=== PATIENT | female | born 1970 | race Caucasian/White ===

== ENCOUNTER 2017-05-23 21:12 | Observation (INO) | payer BC ==
[~2017-05-23] VITALS: Ht 180.3 cm; Wt 120.0 kg
[~2017-05-23 21:12] MED LIST: FURO1TAB93 OR; LIBRAX PO; NEBI20 PO; NITR0.4S SL; OXYC30TA PO; POTA10TA15 PO; XANA0.5T PO
[2017-05-23 21:14] VITALS: BP 153/63; PULSE 78; RESP 16; TEMP 98.8; O2SAT 100
[2017-05-23 21:53] VITALS: O2SAT 99
--- NOTE | 2017-05-23 21:59 | PD ---
HPI Chief Complaint: Cardiac Complaint Time Seen by Provider: 21:49 Travel History International Travel<30 days: No Contact w/Intl Traveler<30days: No Traveled to known affect area: No History of Present Illness HPI 47-year-old female presents to the emergency department by private transportation for complaint of chest pressure and tightness. Patient also complains of shortness of breath. Patient is been having symptoms intermittently times one week. Patient was recently hospitalized in [place] for chest pain and shortness of breath with reported that as part of for evaluation she was scheduled to have an echocardiogram and a cardiac catheterization. However while she was in the hospital his past week and her mother from myocardial infarction so she signed herself out AGAINST MEDICAL ADVICE from the [facility] and came to [place] to be with the rest of her family due to her mother's sudden . Patient said mother had coronary vessel disease and father also had coronary vessel disease. Patient also reports that at the age 16 she started seeing a transit mixer operator in some time in the past several years greater than 10 she is not specific; she had an episode reportedly cardiac arrest in her 20's that was reportedly identified as some type of rhythm disturbance possibly atrial fibrillation. Patient had been on Coumadin until 1 month ago when they discontinued any anticoagulant therapy to "see how [she] would do" reportedly. Patient has not taken any nitroglycerin for her chest pain today. Patient has been taking Bystolic after stopping metoprolol. Patient does not report any pleuritic chest pain. Patient does not report any new lower extremity pain or swelling. 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) ?: Not LMP: 05/14/17 Past Surgical History Abdominal Surgery: Yes (INTESTINAL REPAIR) Appendectomy: Yes Cholecystectomy: Yes Oral Surgery: Yes (TOOTH REMOVAL) Tonsillectomy: Yes Other Surgery: Yes (SKIN GRAFTS LEFT UPPER LEG, TUBE IN LEFT EAR) Social History Alcohol Use: No Tobacco Use: No Substance Use: No Allergies-Medications (Allergen,Severity, Reaction): Coded Allergies: penicillin G (Unverified Allergy, Mild, Swelling, 05/23/17) Reported Meds & Prescriptions Reported Meds & Active Scripts Active Librax (Chlordiazepoxide/Clidinium) 5 Mg Cap 1 Cap PO TIDACHS Potassium Chloride Er (Potassium Chloride Microencaps) 10 Meq Tab 10 Meq PO DAILY Lasix (Furosemide) 40 Mg Tab 40 Mg OR DAILY Reported Oxycodone Hcl (Oxycodone HCl) 30 Mg Tab 30 Mg PO QID as needed Xanax 0.5 mg (Alprazolam) Alprazolam 0.5 mg Tab 1 Tab PO TID Nitrostat (Nitroglycerin) 0.4 Mg Sub 0.4 Mg SL DIRECTED Bystolic 20 Mg Tab (Nebivolol) 20 Mg Tab 20 Mg PO BID Review of Systems Except as stated in HPI: all other systems reviewed are Neg General / Constitutional: No: Fever, Chills HENT: No: Congestion Cardiovascular: Positive: Chest Pain or Discomfort, Dyspnea on exertion, No: Palpitations, Diaphoresis Respiratory: Positive: Shortness of Breath Gastrointestinal: No: Abdominal Pain Genitourinary: No: Flank Pain Skin: No Rash Neurologic: Positive: Weakness, No: Dizziness, Syncope, Focal Abnormalities, Coordination Problem Psychiatric: No: Anxiety Hematologic/Lymphatic: No: Lymph Node Enlargement Physical Exam Narrative GENERAL: Well-developed well-nourished female in no acute distress no respiratory distress SKIN: Warm and dry. HEAD: Normocephalic. EYES: No scleral icterus. No injection or drainage. NECK: Supple, trachea midline. No JVD or lymphadenopathy. CARDIOVASCULAR: Regular rate and rhythm without murmurs, gallops, or rubs. Chest wall: Reproducible chest wall tenderness to palpation especially along the sternum. RESPIRATORY: Breath sounds equal bilaterally. No accessory muscle use. GASTROINTESTINAL: Abdomen soft, non-tender, nondistended. MUSCULOSKELETAL: No cyanosis, or edema. BACK: Nontender without obvious deformity. No CVA tenderness. Data Data Last Documented VS Vital Signs Date Time Temp Pulse Resp B/P (MAP) Pulse Ox O2 Delivery O2 Flow Rate FiO2 05/23/17 21:36 99 Room Air 05/23/17 21:14 98.8 78 16 153/63 (93) Orders Orders Electrocardiogram (05/23/17 21:49) Basic Metabolic Panel (Bmp) (05/23/17 21:49) Ckmb (Isoenzyme) Profile (05/23/17 21:49) Complete Blood Count With Diff (05/23/17 21:49) Magnesium (Mg) (05/23/17 21:49) Prothrombin Time / Inr (Pt) (05/23/17 21:49) Act Partial Throm Time (Ptt) (05/23/17 21:49) Troponin I (05/23/17 21:49) Chest, Single Ap (05/23/17 21:49) Ecg Monitoring (05/23/17 21:49) Bilateral Bp Monitoring (05/23/17 21:49) Iv Access Insert/Monitor (05/23/17 21:49) Oximetry (05/23/17 21:49) Oxygen Administration (05/23/17 21:49) Aspirin Chew (Aspirin Chew) (05/23/17 22:00) Sodium Chloride 0.9% Flush (Ns Flush) (05/23/17 22:00) MDM Medical Decision Making Medical Screen Exam Complete: Yes Emergency Medical Condition: Yes Medical Record Reviewed: Yes Differential Diagnosis EKG sinus rhythm rate [address] segment elevation ST segment depression or injury pattern noted no ectopy Narrative Course Patient placed on physicist light and optics IV access obtained pulse oximetry placed patient administered aspirin 500 cc bolus of normal saline several nitroglycerin times one dose Lakshmi Jaquez MD May 23, 2017 21:59
[2017-05-23] MEDS ORDERED: SODIUM CHLORID 0.9% 500 ML INJ 500 ML IV ONE (22:00)
[2017-05-23] MEDS ORDERED: ASPIRIN 81 MG CHEW TAB PO ONE (22:00)
[2017-05-23] MEDS ORDERED: NITROGLYCERIN 0.4 MG SL 25 TABS/BTL SL ONE (22:00)
[2017-05-23] MEDS ORDERED: SODIUM CHLORIDE 0.9% FLUSH 10 ML FLUSH IVF PRN (22:00)
[2017-05-23] MEDS ORDERED: PROT40TA PO (22:03)
[2017-05-23] MEDS ORDERED: NEBI20 PO (22:03)
[2017-05-23] MEDS ORDERED: OXYC30TA PO (22:03)
[2017-05-23] MEDS ORDERED: POTA10TA15 PO (22:03)
[2017-05-23] MEDS ORDERED: ZOFR8TAB4 SL (22:03)
[2017-05-23] MEDS ORDERED: NITR0.4S SL (22:03)
[2017-05-23] MEDS ORDERED: ALPR.5 PO (22:03)
[2017-05-23] MEDS ORDERED: FURO1TAB60 PO (22:03)
--- NOTE | 2017-05-23 22:08 | RADRPT ---
EXAM DATE/TIME: 05/23/2017 21:51 [facility] COMPARISON: No previous studies available for comparison. INDICATIONS : Chest pain MEDICAL HISTORY : Hypertension. SURGICAL HISTORY : None. ENCOUNTER: Initial ACUITY: 1 day PAIN SCORE: 4/10 LOCATION: chest FINDINGS: A single view of the chest demonstrates the lungs to be symmetrically aerated without evidence of mas s, infiltrate or effusion. The cardiomediastinal contours are unremarkable. Osseous structures are intact. CONCLUSION: No evidence of acute cardiopulmonary disease. Shaheed Blank MD on May 23, 2017 at 22:07 Board Certified Radiologist. This report was verified electronically.
[2017-05-23 22:28] LABS: AUTOMATED NEUTROPHIL # 5.3 TH/MM3 (1.8-7.7); BASOPHIL # 0.1 TH/MM3 (0-0.2); BASOPHIL % 0.8 % (0.0-2.0); EOSINOPHIL # 0.1 TH/MM3 (0-0.4); EOSINOPHIL % 0.9 % (0.0-4.0); HEMATOCRIT 37.9 % (35.0-46.0); HEMO FLAGS DIFF FINAL; LYMPH % 27.5 % (9.0-44.0); LYMPHOCYTE # 2.3 TH/MM3 (1.0-4.8); MEAN CELL VOLUME 85.1 FL (80.0-100.0); MEAN CORPUSCULAR HEMOGLOBIN 27.7 PG (27.0-34.0); MEAN CORPUSCULAR HGB CONC 32.6 % (32.0-36.0); MONO % 7.5 % (0.0-8.0); NEUT % 63.3 % (16.0-70.0); PLATELET COUNT 288 TH/MM3 (150-450); RED BLOOD COUNT 4.46 MIL/MM3 (4.00-5.30); RED CELL DISTRIBUTION WIDTH 15.5 % (11.6-17.2); WHITE BLOOD COUNT 8.4 TH/MM3 (4.0-11.0)
[2017-05-23 23:00] LABS: APTT (PATIENT) 27.3 SEC (24.3-30.1); INTERNATIONAL NORMALIZED RATIO 0.9 RATIO; PROTHROMBIN TIME - PATIENT 10.4 SEC (9.8-11.6)
[2017-05-23 23:03] LABS: ANION GAP 5 MEQ/L (5-15); BICARBONATE 30.1 MEQ/L (21.0-32.0); BLOOD UREA NITROGEN 11 MG/DL (7-18); CHLORIDE 103 MEQ/L (98-107); GLOMERULAR FILTRATION RATE 59 ML/MIN (>89); MAGNESIUM 2.1 MG/DL (1.5-2.5); POTASSIUM 3.5 MEQ/L (3.5-5.1); SODIUM (NA) 138 MEQ/L (136-145)
[2017-05-23 23:23] LABS: CREATINE KINASE 50 U/L (26-192)
[2017-05-23 23:44] VITALS: BP_SYST 110; BP_SYST 141; BP_DIAS 52; BP_DIAS 71; PULSE 60; RESP 18; O2SAT 99
[2017-05-23] MEDS ORDERED: IOHEXOL 350 MG/ML 10 ML VIAL (for RAD DIAG) IVCONTRAST ONE (23:52)
[2017-05-24] VITALS (8 sets, daily range): BP systolic 96–116; BP diastolic 54–56; PULSE 47–73; RESP 18; TEMP 97.7–98; O2SAT 97–100
[2017-05-24] MEDS ORDERED: KETOROLAC TROMETHAMINE 30 MG/ML (IVP) VIAL IV PUSH ONE (00:15)
--- NOTE | 2017-05-24 00:19 | RADRPT ---
EXAM DATE/TIME: 05/23/2017 23:44 [facility] COMPARISON: No previous studies available for comparison. INDICATIONS : Chest pressure with shortness of breath. IV CONTRAST: 75 cc Omnipaque 350 (iohexol) IV RADIATION DOSE: 23.76 CTDIvol (mGy) MEDICAL HISTORY : Cardiovascular disease. Hypertension. Lymphoma. SURGICAL HISTORY : Appendectomy. Cholecystectomy. ENCOUNTER: Initial ACUITY: 1 week PAIN SCALE: 2/10 LOCATION: chest TECHNIQUE: Volumetric scanning of the chest was performed using a pulmonary embolism protocol MIP images were re constructed. Using automated exposure control and adjustment of the mA and/or kV according to patien t size, radiation dose was kept as low as reasonably achievable to obtain optimal diagnostic quality images. DICOM format image data is available electronically for review and comparison. Follow-up recommendations for detected pulmonary nodules are based at a minimum on nodule size and pa tient risk factors according to Fleischner Society Guidelines. FINDINGS: PULMONARY ARTERIES: No filling defects are seen in the pulmonary arteries through the segmental level. LUNGS: There is no consolidation or pneumothorax . No concerning pulmonary nodule is visualized. Calcified granuloma right upper lobe PLEURAE: There is no pleural thickening or pleural effusion. MEDIASTINUM: There is good visualization of the great vessels of the middle mediastinum. No evidence of mediastin al or hilar adenopathy/mass. MUSCULOSKELETAL: Within normal limits for patient age. MISCELLANEOUS: The visualized upper abdominal organs demonstrate no acute abnormality. CONCLUSION: 1. Negative for pulmonary bolus. 2. Calcified granuloma right upper lobe. 3. Linear scarring or atelectasis at the lung bases. Peter Lawrence MD on May 24, 2017 at 0:14 Board Certified Radiologist. This report was verified electronically.
[2017-05-24] MEDS ORDERED: NITROGLYCERIN 2% OINT 1 GM PACKET TOPICAL ONE (01:00)
[2017-05-24] MEDS ORDERED: SODIUM CHLOR 0.9% 1000 ML INJ 1,000 ML IV ONE ×2 (01:00→02:45)
[2017-05-24 01:57] LABS: CREATINE KINASE 36 U/L (26-192)
[2017-05-24] MEDS ORDERED: SODIUM CHLORIDE 0.9% FLUSH 10 ML FLUSH IVF PRN (03:00)
[2017-05-24] MEDS ORDERED: ONDANSETRON HCL 4 MG/2 ML VIAL IV PUSH PRN (03:00)
[2017-05-24] MEDS ORDERED: SODIUM CHLORIDE 0.9% FLUSH 10 ML FLUSH IV FLUSH PRN (03:00)
[2017-05-24 05:40] LABS: CREATINE KINASE 31 U/L (26-192)
[2017-05-24] MEDS ORDERED: NITROGLYCERIN 2% OINT 1 GM PACKET TOP SCH (06:00)
[2017-05-24 08:01] LABS: CREATINE KINASE 35 U/L (26-192)
[2017-05-24] MEDS ORDERED: SODIUM CHLORIDE 0.9% FLUSH 10 ML FLUSH IV FLUSH SCH ×2 (09:00)
--- NOTE | 2017-05-24 10:49 | HHI.HP ---
HPI Primary Care Physician Primary Care Physician located in [place] Chief Complaint Chest pressure History of Present Illness 47-year-old female with history of GERD and long standing cardiac arrhythmias since age 16 presents to emergency room for further evaluation of chest pressure. Onset 2 weeks ago. Location substernal. Characterized as pressure. Duration constant. Reporting associated symptoms and radiation of pain difficult for her to distinguish due to GERD and chronic back pain. No known precipitating or relieving factors. She is from [place] and in [place] due to mother Saturday. Last week in [place] was admitted to a local hospital for chest pain. Chemical stress test attempted stating she "turned blue and they needed to give me reverse medication to save me." Since chemical stress test was not completed she was scheduled for an echocardiogram and cardiac catheterization Saturday (05/20/17). She signed herself out AMA to come to [place] due to mother's Saturday evening. Reporting a history A. fib diagnoses age 16, history of 9 cardioversions, and "coding when I was 16." Denies ever having cardiac ablations. Review of Systems General: No fatigue,weakness, fever, chills, or recent illness. HEENT: No SINGH, no vision changes CV: Current chest pain as stated above. 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 Diagnosed with A. fib age 16, stop taking warfarin 1 month ago at the direction of her ethanol quality leader. RESP: No SOB, cough, or recent URI. GI: No nausea, vomiting, or bowel changes. No change in appetite, no unintentional weight gain or weight loss. : No dysuria EXT: Occasional bilateral lower leg edema, no paraesthesias MS: No discomfort or change in ROM NEURO: No difficulty with balance, LOC, motor/sensory deficits PSYCH: No anxiety, depression, or suicidal ideation. Reports handling situational stress over mother's well. SKIN: No rashes, no concerning lesions Past Family Social History Allergies: Coded Allergies: egg (Verified Allergy, Intermediate, FACIAL SWELLING, 05/23/17) penicillin G (Unverified Allergy, Mild, Swelling, 05/23/17) Past Medical History GERD, lymphoma, A. fib, cardiac arrhythmias (unsure what types), deaf left ear, arthritis Past Surgical History Hiatal hernia repair, intestinal repair, right knee and leg screws and rods Reported Medications Active Reported Protonix (Pantoprazole Sodium) 40 Mg Tab 40 Mg PO DAILY Zofran Odt (Ondansetron Odt) 8 Mg Tab 8 Mg SL Q8H PRN Bystolic (Nebivolol) 10 Mg PO BID Oxycodone (Oxycodone HCl) 30 Mg Tab 30 Mg PO Q6H PRN Xanax (Alprazolam) 0.5 Mg Tab 0.5 Mg PO Q8H PRN Lasix (Furosemide) 40 Mg Tab 40 Mg PO DAILY Nitrostat SL (Nitroglycerin) 0.4 Mg Subl 0.4 Mg SL DIRECTED PRN 1 tablet under the tongue as needed for chest pain. Repeat every 5 minutes for a total of 3 DOSES or call 911 if NO relief. Potassium Chloride Microencaps 10 Meq Tab 10 Meq PO DAILY Ranitidine 150 mg twice a day Carafate (quit taking recently states she was afraid she was taking too many medications) Active Ordered Medications Current Medications Medications (Trade) Dose Ordered Sig/Ascencion Route Start Time Stop Time Status Last Admin (NS Flush) 2 ml UNSCH PRN IV FLUSH 05/24/17 03:00 (NS Flush) 2 ml BID IV FLUSH 05/24/17 09:00 05/24/17 09:11 (Zofran Inj) 4 mg Q6H PRN IV PUSH 05/24/17 03:00 (Nitroglycerin 2% Oint) 0.5 inch Q6HR TOP 05/24/17 06:00 Family History Father age 62 from [place]. Mother age 71 from [place]. Social History No known diabetes, hyperlipidemia, hypertension, or coronary artery disease. Lifelong nonsmoker. Denies any alcohol or illegal drug use. Endorses a sedentary lifestyle. Lives in [place]. Past cardiac testing Recently detected chemical stress test unable to complete due to reaction. Was scheduled this past Saturday05/20/17 for cardiac catheterization and echocardiogram while admitted in [facility]. She signed out AMA due to mother's . No previous cardiac catheterization. Never required cardiac ablations. Stop taking warfarin 1 month ago by the direction of the ethanol quality leader. Physical Exam Vital Signs Vital Signs Date Time Temp Pulse Resp B/P (MAP) Pulse Ox O2 Delivery O2 Flow Rate FiO2 05/24/17 09:10 47 05/24/17 07:22 97.9 57 18 96/55 (69) 98 05/24/17 05:37 54 9/29/17 04:48 98.0 68 18 116/55 (75) 97 05/24/17 03:19 98 21 05/24/17 03:14 73 18 107/56 (73) 98 Room Air 05/24/17 01:21 66 18 103/56 (72) 98 Room Air 05/23/17 23:47 05/23/17 23:44 60 18 110/52 (71) 99 Room Air 141/71 (94) 05/23/17 22:03 100 Room Air 05/23/17 21:53 99 Room Air 05/23/17 21:36 99 Room Air 05/23/17 21:14 98.8 78 16 153/63 (93) 100 Room Air Physical Exam GENERAL: Alert WN, WD, NAD, obese, female HEAD: NC, AT NECK: Supple, no masses, trachea midline CV: RRR, without murmur, rub, gallop, no JVD, S1-S2 no S3-S4. No carotid bruits. RESP: Clear lungs throughout bilateral, no crackles, wheeze, rhonchi, symmetrical chest rise, nonlabored, able to speak in full sentences ABD: Soft, NT, ND, no masses, positive bowel tones EXT: Pulses +24, no dependent edema MS: Normal tone 4 extremities, nontender, no obvious deformities, full range of motion NEURO: CN II through CN XII grossly intact, motor strength 5/5 PSYCH: A+O 3, talkative, mildly anxious, possible underlying mental illness, flight of ideas noted, attention span difficult to maintain, appropriate affect , insight and judgment SKIN: Normal turgor, normal texture, no lesions, no rashes, brisk cap refill, even hair distribution Laboratory Laboratory Tests Test 05/23/17 22:07 05/24/17 01:20 05/24/17 04:12 05/24/17 07:10 White Blood Count 8.4 Red Blood Count 4.46 Hemoglobin 12.4 Hematocrit 37.9 Mean Corpuscular Volume 85.1 Mean Corpuscular Hemoglobin 27.7 Mean Corpuscular Hemoglobin Concent 32.6 Red Cell Distribution Width 15.5 Platelet Count 288 Mean Platelet Volume 8.9 Neutrophils (%) (Auto) 63.3 Lymphocytes (%) (Auto) 27.5 Monocytes (%) (Auto) 7.5 Eosinophils (%) (Auto) 0.9 Basophils (%) (Auto) 0.8 Neutrophils # (Auto) 5.3 Lymphocytes # (Auto) 2.3 Monocytes # (Auto) 0.6 Eosinophils # (Auto) 0.1 Basophils # (Auto) 0.1 CBC Comment DIFF FINAL Differential Comment Prothrombin Time 10.4 Prothromb Time International Ratio 0.9 Activated Partial Thromboplast Time 27.3 Blood Urea Nitrogen 11 Creatinine 1.01 Random Glucose 105 Calcium Level 9.2 Magnesium Level 2.1 Sodium Level 138 Potassium Level 3.5 Chloride Level 103 Carbon Dioxide Level 30.1 Anion Gap 5 Estimat Glomerular Filtration Rate 59 Total Creatine Kinase 50 36 31 35 Troponin I LESS THAN 0.02 LESS THAN 0.02 LESS THAN 0.02 LESS THAN 0.02 Result Diagram: 05/23/17220605/23/172206 Imaging Last Impressions Chest X-Ray 05/23/172148 Signed Impressions: Service Date/Time: April 21:51 - CONCLUSION: No evidence of acute cardiopulmonary disease. Shaheed Blank MD CT Angiography 05/23/17 0000 Signed Impressions: Service Date/Time: April 23:44 - CONCLUSION: 1. Negative for pulmonary bolus. 2. Calcified granuloma right upper lobe. 3. Linear scarring or atelectasis at the lung bases. Peter Lawrence MD Course EKG Sinus rhythm, No ST or T-segment changes Caprini VTE Risk Assessment Caprini VTE Risk Assessment: No/Low Risk (score <= 1) Caprini Risk Assessment Model Point Value = 1 Point Value = 2 Point Value = 3 Point Value = 5 Age 41-60 Minor surgery BMI > 25 kg/m2 Swollen legs Varicose veins or History of unexplained or recurrent spontaneous Oral contraceptives or hormone replacement Sepsis (< 1 month) Serious lung disease, including pneumonia (< 1 month) Abnormal pulmonary function Acute myocardial infarction Congestive heart failure (< 1 month) History of inflammatory bowel disease Medical patient at bed rest Age 61-74 Arthroscopic surgery Major open surgery (> 45 min) Laparoscopic surgery (> 45 min) Malignancy Confined to bed (> 72 hours) Immobilizing plaster cast Central venous access Age >= 75 History of VTE Family history of VTE Factor V Leiden Prothrombin [id number] Lupus anticoagulant Anticardiolipin antibodies Elevated serum homocysteine Heparin-induced thrombocytopenia Other congenital or acquired thrombophilia Stroke (< 1 month) Elective arthroplasty Hip, pelvis, or leg fracture Acute spinal cord injury (< 1 month) Prophylaxis Regimen Total Risk Factor Score Risk Level Prophylaxis Regimen 0-1 Low Early ambulation 2 Moderate Order ONE of the following: *Sequential Compression Device (SCD) *Heparin 5000 units SQ BID 3-4 Higher Order ONE of the following medications: *Heparin 5000 units SQ TID *Enoxaparin/Lovenox 40 mg SQ daily (WT < 150 kg, CrCl > 30 mL/min) *Enoxaparin/Lovenox 30 mg SQ daily (WT < 150 kg, CrCl > 10-29 mL/min) *Enoxaparin/Lovenox 30 mg SQ BID (WT < 150 kg, CrCl > 30 mL/min) AND/OR *Sequential Compression Device (SCD) 5 or more Highest Order ONE of the following medications: *Heparin 5000 units SQ TID (Preferred with Epidurals) *Enoxaparin/Lovenox 40 mg SQ daily (WT < 150 kg, CrCl > 30 mL/min) *Enoxaparin/Lovenox 30 mg SQ daily (WT < 150 kg, CrCl > 10-29 mL/min) *Enoxaparin/Lovenox 30 mg SQ BID (WT < 150 kg, CrCl > 30 mL/min) AND *Sequential Compression Device (SCD) Assessment and Plan Assessment and Plan #1 Atypical chest pain-admitted to chest pain center. Ruled out with 3 sets of EKGs, cardiac enzymes, and monitored overnight. Seen and evaluated by Dr. Jaciel Horton. No further cardiac testing required at this time. Instructed to Follow up with ethanol quality leader is [employer] for previously scheduled cardiac catheterization and echocardiogram. Patient is agreeable to plan of care. Plans to return home Saturday. Dr. Horton spoke in length chest discomfort and arrhythmias most likely related to anxiety. Encouraged her to continue Xanax, increase her daily activity, and find other means to release stress. #2 History of cardiac arrhythmia-continue Bystolic #3 GERD-continue Protonix, ranitidine, Zofran, and Carafate as previously instructed. Sara Bustamante May 24, 2017 10:49
--- NOTE | 2017-05-24 11:12 | HHI.DCPOC ---
Discharge Care Plan Diagnosis: (1) Atypical chest pain (2) History of cardiac arrhythmia (3) GERD (gastroesophageal reflux disease) (4) Hypertension Goals to Promote Your Health * To prevent worsening of your condition and complications * To maintain your health at the optimal level Directions to Meet Your Goals Take your medications as prescribed Follow your dietary instruction Follow activity as directed Keep your appointments as scheduled Take your immunizations and boosters as scheduled If your symptoms worsen call your PCP, if no PCP go to Urgent Care Center or Emergency Room Smoking is Dangerous to Your Health. Avoid second hand smoke Call the 24-hour hour crisis hotline for domestic abuse at Sara Bustamante May 24, 2017 11:12
[2017-05-24] MEDS ORDERED: FUROSEMIDE 40 MG TAB PO SCH (12:00)
[2017-05-24] MEDS ORDERED: PANTOPRAZOLE SOD 40 MG DELAYED RELEASE TAB PO SCH (12:00)
[2017-05-24] MEDS ORDERED: POTASSIUM CHLORIDE 10 MEQ CONTROLLED RELEASE TAB PO SCH (12:00)
[2017-05-24] MEDS ORDERED: NEBIVOLOL 5 MG TAB PO SCH (13:00)
--- NOTE | 2017-05-24 13:46 | EKG ---
Date Performed: 05/24/2017 Time Performed: 01:25:30 PTAGE: 47 years EKG: SINUS BRADYCARDIA WITH SINUS ARRHYTHMIA BORDERLINE ECG PREVIOUS TRACING : 05/23/2017 21.33 Since previous tracing, no significant change noted DOCTOR: Jaciel Horton Interpretating Date/Time 05/24/2017 13:45:38
--- NOTE | 2017-05-24 13:53 | EKG ---
Date Performed: 05/23/2017 Time Performed: 21:33:13 PTAGE: 47 years EKG: Sinus rhythm POSSIBLE LEFT ATRIAL ENLARGEMENT BORDERLINE ECG NO PREVIOUS TRACING DOCTOR: Jaciel Horton Interpretating Date/Time 05/24/2017 13:51:54
--- NOTE | 2017-05-24 14:01 | EKG ---
Date Performed: 05/24/2017 Time Performed: 04:31:11 PTAGE: 47 years EKG: SINUS BRADYCARDIA WITH SINUS ARRHYTHMIA BORDERLINE ECG PREVIOUS TRACING : 05/24/2017 01.25 Since previous tracing, no significant change noted DOCTOR: Jaciel Horton Interpretating Date/Time 05/24/2017 13:59:38
== END 2017-05-24 12:20 | disposition home or self-care (01) ==
LOC: NEPC 21:12 → NEDA 05-24 02:51 → NEPGCP 05-24 04:01
PROVIDERS: ADMIT Internal Medicine Cardiovascular Disease; ATTEND Internal Medicine Cardiovascular Disease
DX: R07.89 Other chest pain (principal); I10 Essential (primary) hypertension; I49.9 Cardiac arrhythmia, unspecified; I48.91 Unspecified atrial fibrillation; K21.9 Gastro-esophageal reflux disease without esophagitis; F41.9 Anxiety disorder, unspecified; M54.9 Dorsalgia, unspecified; G89.29 Other chronic pain; H91.92 Unspecified hearing loss, left ear; Z86.74 Personal history of sudden cardiac arrest; Z85.72 Personal history of non-Hodgkin lymphomas; Z82.49 Family history of ischemic heart disease and other diseases of the circulatory system
CPT/HCPCS: 71010; 71275; 80048; 82550; 83735; 84484; 85025; 85610; 85730; 93005; 96361; 96374; 96375; 99285; G0378; J1885; J2405; J7030; J7040; Q9967